=== PATIENT | female | born 1970 | race Caucasian/White ===

== ENCOUNTER 2017-11-17 00:44 | Emergency (ER) | payer BC, MEDICAID ==
[~2017-11-17] VITALS: Ht 154.9 cm; Wt 80.0 kg
[2017-11-17 00:54] VITALS: BP 102/75; PULSE 81; RESP 16; TEMP 98.7; O2SAT 99
--- NOTE | 2017-11-17 01:30 | PD ---
HPI Chief Complaint: Injury Time Seen by Provider: 01:10 Travel History International Travel<30 days: No Contact w/Intl Traveler<30days: No Traveled to known affect area: No History of Present Illness HPI 47-year-old female presents for evaluation of left hand and wrist pain. She reports that 5 days ago she was pushing herself up off of the ground using her left hand. Since then she has had pain and swelling left hand and wrist. The pain is an aching pain which is worse with movement and palpation. Symptoms persisted throughout the week which prompted evaluation. No other complaints at this time. [facility] Past Medical History Medical History: Denies Significant Hx Diminished Hearing: No Tetanus Vaccination: Unknown Influenza Vaccination: No ?: Not LMP: 11/01/2017 Past Surgical History Section: Yes Ear Surgery: Yes (b/l ear tubes) Social History Alcohol Use: Yes (rarely) Tobacco Use: No Substance Use: No Allergies-Medications (Allergen,Severity, Reaction): Coded Allergies: No Known Allergies (Unverified , 11/17/17) Review of Systems Musculoskeletal: Positive: Edema, Pain Skin: Positive Other (Denies open wounds) Physical Exam Narrative GENERAL: Well-developed well-nourished female no acute distress SKIN: Warm and dry. HEAD: Atraumatic. Normocephalic. EYES: Pupils equal and round. No scleral icterus. No injection or drainage. ENT: No nasal bleeding or discharge. Mucous membranes pink and moist. NECK: Trachea midline. No JVD. CARDIOVASCULAR: Regular rate and rhythm. No murmur appreciated. RESPIRATORY: No accessory muscle use. Clear to auscultation. Breath sounds equal bilaterally. MUSCULOSKELETAL: Examination reveals diffuse tenderness to palpation in the left hand and wrist. There is some nonspecific edema to the left hand. There is pain with range of motion activities of the left wrist and hand. Full range of motion is preserved. Distal sensation is intact in the median, radial, ulnar nerve distributions. Capillary refill less than 2 seconds all digits left hand. 2+ radial pulse. No axillary lymphadenopathy. No erythema. NEUROLOGICAL: Awake and alert. No obvious cranial nerve deficits. Motor grossly within normal limits. Normal speech. Data Data Last Documented VS Vital Signs Date Time Temp Pulse Resp B/P (MAP) Pulse Ox O2 Delivery O2 Flow Rate FiO2 11/17/17 00:54 98.7 81 16 102/75 (84) 99 Room Air Orders Orders Hand, Complete ([id number]) (11/17/17 ) Wrist, Complete ([id number]) (11/17/17 ) Ice/Cold Pack (11/17/17 01:27) Splint Or Brace Apply/Monitor (11/17/17 03:13) Ed Discharge Order (11/17/17 03:13) MDM Medical Decision Making Medical Screen Exam Complete: Yes Emergency Medical Condition: Yes Medical Record Reviewed: Yes Differential Diagnosis Wrist sprain, fracture, contusion, ecchymosis Narrative Course X-ray imaging of the left wrist and hand were obtained revealing no acute abnormalities. I suspect a left wrist sprain. She will be discharged with a Velcro wrist splint. Diagnosis Primary Impression: Left wrist sprain Additional Instructions: Ice several times a day 20 minutes at a time, follow-up with primary care physician in 2 weeks, return for any emergent medical conditions. Med/Other Pt SpecificInfo: Orthopedic Instructions Disposition: 01 DISCHARGE HOME Condition: Stable Tayo Maldonado Nov 17, 2017 01:30
--- NOTE | 2017-11-17 02:26 | RADRPT ---
EXAM DATE/TIME: 11/17/2017 01:43 [facility] COMPARISON: No previous studies available for comparison. INDICATIONS : Left hand pain and swelling without known trauma. MEDICAL HISTORY : None. SURGICAL HISTORY : None. ENCOUNTER: Initial ACUITY: 1 day PAIN SCORE: 0/10 LOCATION: Left wrist FINDINGS: Three view examination of the left wrist demonstrates no soft tissue swelling, dislocation, or fractu re. The carpal bones are in normal alignment. The joint spaces are maintained. Bony mineralization is normal. CONCLUSION: Negative exam with no acute osseous injury. Tyree Mcdonald MD on November 17, 2017 at 2:24 Board Certified Radiologist. This report was verified electronically.
--- NOTE | 2017-11-17 02:27 | RADRPT ---
EXAM DATE/TIME: 11/17/2017 01:44 [facility] COMPARISON: No previous studies available for comparison. INDICATIONS : Left hand pain and swelling without known trauma. MEDICAL HISTORY : None. SURGICAL HISTORY : None. ENCOUNTER: Initial ACUITY: 1 day PAIN SCORE: 10/10 LOCATION: Left hand FINDINGS: Three view examination of the left hand demonstrates no soft tissue swelling, dislocation, or fractur e. The carpal bones appear intact. The interphalangeal and metacarpophalangeal joints are intact. Bony mineralization is normal. CONCLUSION: No fracture. Tyree Mcdonald MD on November 17, 2017 at 2:25 Board Certified Radiologist. This report was verified electronically.
== END 2017-11-17 03:34 | disposition home or self-care (01) ==
LOC: NEPD 00:44
DX: S63.502A Unspecified sprain of left wrist, initial encounter (principal); W22.8XXA Striking against or struck by other objects, initial encounter
CPT/HCPCS: 73110; 73130; 99283; L3908